=== PATIENT | male | born 1990 | race Caucasian/White ===

== ENCOUNTER 2016-09-21 13:41 | Emergency (ER) | payer OTHER ==
[~2016-09-21] VITALS: Ht 188 cm; Wt 93.0 kg
[2016-09-21 15:35] LABS: EOS # 0.2 K/mm3 (0.0-0.50); EOS % 3.9 % (0.0-3.0); LARGE UNSTAINED CELL # 0.2 K/mm3 (0.0-0.4); LARGE UNSTAINED CELL % 3.1 % (0.0-4.0); LYMPH % 36.1 % (24.0-44.0); MEAN CORPUSCULAR HEMOGLOBIN 31.4 pg (27.0-33.0); MEAN CORPUSCULAR HGB CONC 35.5 g/dl (32.0-36.5); MEAN CORPUSCULAR VOLUME 88.5 fl (80.0-96.0); MONO # 0.3 K/mm3 (0.0-0.8); MONO % 6.1 % (0.0-5.0); NEUTROPHILS # 2.6 K/mm3 (1.8-7.7); NEUTROPHILS % 49.8 % (36.0-66.0); PLATELET COUNT, AUTOMATED 313 k/mm3 (150-450); RED CELL DISTRIBUTION WIDTH 12.1 % (11.5-14.5); WHITE BLOOD COUNT 5.2 K/mm3 (4.0-10.0)
--- NOTE | 2016-09-21 15:40 | REP ---
Chest x-ray: Two views. History: Left chest pain . Comparison study: No comparisons . Findings: The lungs are well inflated and free of infiltrate. The pleural angles are sharp. The heart size is normal. Pulmonary vasculature is not increased. No significant bony abnormality is seen. Impression: Negative chest x-ray. Signed by Arnaud Warren MD 09/21/2016 03:31 P
[2016-09-21 15:52] LABS: ANION GAP 8 MEQ/L (8-16); BLOOD UREA NITROGEN 12 MG/DL (7-18); CALCIUM LEVEL 9.1 MG/DL (8.5-10.1); CARBON DIOXIDE LEVEL 29 MEQ/L (21-32); CHLORIDE LEVEL 105 MEQ/L (98-107); CREATININE FOR GFR 1.33 MG/DL (0.70-1.30); GLOMERULAR FILTRATION RATE > 60.0 (>60); GLUCOSE, FASTING 91 MG/DL (70-105); POTASSIUM SERUM 3.5 MEQ/L (3.5-5.1); SODIUM LEVEL 142 MEQ/L (136-145)
[2016-09-21 16:07] VITALS: BP 121/71
--- NOTE | 2016-09-22 20:23 | ECGEPIP ---
Stationary ECG Study [facility] - ED Test Date: 2016-09-21 Pat Name: MT FERNANDEZ Department: Room: - Gender: M Senior Operations Manager: tesfaye : 1990 Requested By: LUIS M Clarke PA-C Order Number: [id number] Reading MD: Celia Gamboa Measurements Intervals [place] Rate: 48 P: 28 MT: 169 QRS: 43 QRSD: 106 T: 17 QT: 421 QTc: 380 Interpretive Statements SINUS BRADYCARDIA WITH SINUS ARRHYTHMIA NO PRIOR FOR COMPARISON Electronically Signed On 09-22-2016 20:23:06 EDT by Celia Gamboa
== END 2016-09-21 16:10 | disposition home or self-care (01) ==
LOC: M ED 15:56
DX: R07.9 Chest pain, unspecified (principal)

== ENCOUNTER → 2019-02-11 | Outpatient (CLI) | payer OTHER ==
[~2019-02-11] MED LIST: METHACHOLINE KIT (J7674) INH ONE
--- NOTE | 2019-02-11 08:36 | PFTRPT ---
Height: 73.00 Inches Weight: 215.00 Lbs BSA: 2.22 Diagnosis: R06.00 DATE OF PROCEDURE: 02/11/2019 ORDERED BY: Delbert Sousa PA-C INTERPRETATION: Study of excellent technical quality. Under protocol, methacholine was administered. At a dose of 10 mg or 63.875 CDUs, a 33% decline in the FEV1 was noted. PC of 3.71 is significant. Flow rates did return to baseline post bronchodilator administration. IMPRESSION: Positive methacholine challenge study. MTDD
== END ==
LOC: M CARPUL 07:31
PROVIDERS: ATTEND Physician Assistant
DX: R06.00 Dyspnea, unspecified (principal); R94.2 Abnormal results of pulmonary function studies
CPT/HCPCS: 94070; J7674